=== PATIENT | female | born 1945 | race Caucasian/White ===

== ENCOUNTER 2019-05-07 17:14 | Emergency (ER) | payer MEDICARE ==
[~2019-05-07] VITALS: Ht 152.4 cm; Wt 64.1 kg
[~2019-05-07 17:14] MED LIST: HYDR-4353 PO; METO100T14 PO; NAPR-1166 PO; PANT40TA4 PO
[2019-05-07 17:33] VITALS: BP 144/75
== END 2019-05-07 20:03 | disposition home or self-care (01) ==
LOC: ER 17:14
DX: S00.83XA Contusion of other part of head, initial encounter (principal); R07.81 Pleurodynia; I10 Essential (primary) hypertension; E11.9 Type 2 diabetes mellitus without complications; F17.200 Nicotine dependence, unspecified, uncomplicated; M06.9 Rheumatoid arthritis, unspecified; Z98.890 Other specified postprocedural states; Z88.0 Allergy status to penicillin; Z79.899 Other long term (current) drug therapy; W18.39XA Other fall on same level, initial encounter; Y93.89 Activity, other specified; Y92.89 Other specified places as the place of occurrence of the external cause; Y99.8 Other external cause status
CPT/HCPCS: 70450; 71046; 72125; 99284

== ENCOUNTER 2020-04-16 16:56 | Emergency (ER) | payer MEDICARE ==
[~2020-04-16] VITALS: Ht 152.4 cm; Wt 67.6 kg
[~2020-04-16 16:56] MED LIST changes: -PANT40TA4 PO; +PANT40TA54 PO
[2020-04-16] MEDS ORDERED: cloNIDine 0.1 mg tablet PO ONE (18:05)
[2020-04-16 18:33] LABS: CLARITY,URINE CLEAR (Clear); COLOR,URINE YELLOW (Yellow); GLUCOSE, URINE NEGATIVE (Neg); KETONES,URINE NEGATIVE (Neg); LEUKOCYTE ESTERASE ,URINE TRACE (Neg); NITRITES, URINE NEGATIVE (Neg); OCCULT BLOOD,URINE NEGATIVE (Neg); PROTEIN,URINE NEGATIVE (Neg); UROBILINOGEN,URINE 0.2 E.U/dL (0.2-1.0)
[2020-04-16 18:39] LABS: UA COLLECTION TYPE CLN CATCH MIDSTREAM
[2020-04-16 18:40] LABS: BACTERIA,URINE 1+ /HPF (Neg); RBC,URINE NONE SEEN /HPF (0-2); SQUAMOUS EPITHELIAL CELL,UR FEW /LPF (FEW); WBC,URINE 0-4 /HPF (0-4)
[2020-04-16 18:44] LABS: BASOPHILS # (AUTO) 0.1 X10'3 (0-0.2); BASOPHILS % (AUTO) 1.1 % (0-1); EOSINOPHILS # (AUTO) 0.3 X10'3 (0-0.9); EOSINOPHILS % (AUTO) 4.1 % (0-6); HEMATOCRIT 37.2 % (35.0-45.0); HEMOGLOBIN 12.5 g/dl (12.0-16.0); LYMPHOCYTES # (AUTO) 3.1 X10'3 (1.1-4.8); LYMPHOCYTES % (AUTO) 43.5 % (21-51); MEAN CORPUSCULAR HEMOGLOBIN 28.3 PG (27.0-31.0); MEAN CORPUSCULAR HGB CONC 33.5 g/dL (33.0-36.5); MEAN CORPUSCULAR VOLUME 84.6 FL (78-98); MEAN PLATELET VOLUME 7.1 FL (7.4-10.4); MONOCYTES # (AUTO) 0.7 X10'3 (0-0.9); MONOCYTES % (AUTO) 10.3 % (2-12); NEUTROPHILS # (AUTO) 2.9 X10'3 (1.8-7.7); PLATELET COUNT 338 X10'3 (140-440); RED CELL DISTRIBUTION WIDTH 14.9 % (11.5-14.5); WHITE BLOOD COUNT 7.1 X10'3 (4.5-11.0)
[2020-04-16 18:54] LABS: MAGNESIUM 1.9 MG/DL (1.5-2.4)
[2020-04-16 19:25] VITALS: BP 169/94
== END 2020-04-16 19:32 | disposition home or self-care (01) ==
LOC: ER 16:57
DX: I10 Essential (primary) hypertension (principal); E11.9 Type 2 diabetes mellitus without complications; Z98.890 Other specified postprocedural states; Z88.0 Allergy status to penicillin; Z79.899 Other long term (current) drug therapy
CPT/HCPCS: 36415; 81001; 83735; 83880; 84484; 85025; 87077; 87088; 87186; 93005; 99284; 99285

== ENCOUNTER 2021-04-24 13:48 | Emergency (ER) | payer MEDICARE ==
[~2021-04-24] VITALS: Ht 152.4 cm; Wt 65.9 kg
[2021-04-24 15:22] VITALS: BP 153/50
[2021-04-24] MEDS ORDERED: BENZ-38 PO (17:11)
[2021-04-24] MEDS ORDERED: AZIT500T PO (17:11)
== END 2021-04-24 17:41 | disposition home or self-care (01) ==
LOC: ER 13:49
DX: J20.9 Acute bronchitis, unspecified (principal); Z20.822 Contact with and (suspected) exposure to COVID-19; I10 Essential (primary) hypertension; E11.9 Type 2 diabetes mellitus without complications; M06.9 Rheumatoid arthritis, unspecified; Z98.82 Breast implant status; Z88.0 Allergy status to penicillin; Z79.1 Long term (current) use of non-steroidal anti-inflammatories (NSAID); Z79.899 Other long term (current) drug therapy
CPT/HCPCS: 71045; 87635; 99284; C9803

== ENCOUNTER 2021-09-11 11:34 | Emergency (ER) | payer MEDICARE ==
[~2021-09-11] VITALS: Ht 152.4 cm; Wt 66.8 kg
[2021-09-11 12:28] LABS: BASOPHILS # (AUTO) 0.1 X10'3 (0-0.2); BASOPHILS % (AUTO) 0.9 % (0-1); EOSINOPHILS # (AUTO) 0.5 X10'3 (0-0.9); EOSINOPHILS % (AUTO) 6.2 % (0-6); HEMATOCRIT 35.2 % (35.0-45.0); HEMOGLOBIN 11.6 g/dl (12.0-16.0); LYMPHOCYTES % (AUTO) 26.5 % (21-51); MEAN CORPUSCULAR HEMOGLOBIN 28.2 PG (27.0-31.0); MEAN CORPUSCULAR HGB CONC 32.9 g/dL (33.0-36.5); MEAN CORPUSCULAR VOLUME 85.7 FL (78-98); MEAN PLATELET VOLUME 7.1 FL (7.4-10.4); MONOCYTES # (AUTO) 0.8 X10'3 (0-0.9); MONOCYTES % (AUTO) 10.1 % (2-12); NEUTROPHILS # (AUTO) 4.2 X10'3 (1.8-7.7); NEUTROPHILS % (AUTO) 56.3 % (42-75); PLATELET COUNT 281 X10'3 (140-440); RED BLOOD COUNT 4.11 X10'6 (4.20-5.60); RED CELL DISTRIBUTION WIDTH 15.2 % (11.5-14.5); WHITE BLOOD COUNT 7.4 X10'3 (4.5-11.0)
[2021-09-11 12:38] LABS: ALANINE AMINOTRANSFERASE 15 U/L (12-78); ALBUMIN 3.5 G/DL (3.4-5.0); ALBUMIN/GLOBULIN RATIO 0.9 (1.1-1.5); ALKALINE PHOSPHATASE 69 IU/L (46-116); ANION GAP 6 (8-16); ASPARTATE AMINO TRANSFERASE 17 U/L (10-37); BILIRUBIN,TOTAL 0.3 MG/DL (0.1-1.0); BLOOD UREA NITROGEN 22 MG/DL (7-18); BUN/CREATININE RATIO 24.7 (6.6-38.0); CALCIUM 8.9 MG/DL (8.5-10.1); CHLORIDE 99 MMOL/L (99-107); CREATININE 0.89 MG/DL (0.40-0.90); GLUCOSE 89 MG/DL (70-104); POTASSIUM 4.6 MMOL/L (3.5-5.1); SODIUM 133 MMOL/L (135-145); TOTAL CARBON DIOXIDE 27.8 MMOL/L (24-32); TOTAL PROTEIN 7.4 G/DL (6.4-8.2); eGFR 62 ML/MIN
--- NOTE | 2021-09-11 15:11 | NUR ---
Pt awaiting md, no needs at this time. alert and oriented x3.
--- NOTE | 2021-09-11 16:45 | NUR ---
Pt waiting for MD, no apparent distress or needs at this time.
[2021-09-11] MEDS ORDERED: azithromycin 250mg tablet PO ONE (17:35)
[2021-09-11] MEDS ORDERED: albuterol 2.5 MG/3 ML nebule NEB ONE (17:35)
[2021-09-11] MEDS ORDERED: predniSONE 20 mg tablet PO ONE (17:35)
[2021-09-11 17:42] VITALS: BP 144/72
--- NOTE | 2021-09-11 17:43 | NUR ---
RT here for breathing tx.
[2021-09-11] MEDS ORDERED: PRED20TA PO (17:50)
[2021-09-11] MEDS ORDERED: AZIT250T PO (17:50)
[2021-09-11] MEDS ORDERED: ALB0.5UD IH (17:50)
[2021-09-11] MEDS ORDERED: [UNRECOGNIZED DRUG - CODE] INH (17:50)
== END 2021-09-11 18:17 | disposition home or self-care (01) ==
LOC: ER 11:35
DX: R91.1 Solitary pulmonary nodule (principal); J44.1 Chronic obstructive pulmonary disease with (acute) exacerbation; R06.02 Shortness of breath; R05.9 Cough, unspecified; I10 Essential (primary) hypertension; E11.9 Type 2 diabetes mellitus without complications; Z98.890 Other specified postprocedural states; Z88.0 Allergy status to penicillin; Z88.8 Allergy status to other drugs, medicaments and biological substances; Z79.2 Long term (current) use of antibiotics; Z79.899 Other long term (current) drug therapy
CPT/HCPCS: 36415; 71045; 80053; 83880; 84484; 85025; 93005; 94640; 99285; J7512; 94760

== ENCOUNTER 2022-01-08 10:46 | Emergency (ER) | payer MEDICARE, MEDICAID ==
[~2022-01-08] VITALS: Ht 152.4 cm; Wt 64.0 kg
[~2022-01-08 10:46] MED LIST changes: +AZIT250T PO; +[UNRECOGNIZED DRUG - CODE] INH
[2022-01-08 11:40] LABS: BASOPHILS # (AUTO) 0.1 X10'3 (0-0.2); BASOPHILS % (AUTO) 0.5 % (0-1); EOSINOPHILS # (AUTO) 0.2 X10'3 (0-0.9); EOSINOPHILS % (AUTO) 1.4 % (0-6); HEMATOCRIT 34.8 % (35.0-45.0); HEMOGLOBIN 11.4 g/dl (12.0-16.0); LYMPHOCYTES # (AUTO) 1.2 X10'3 (1.1-4.8); LYMPHOCYTES % (AUTO) 9.2 % (21-51); MEAN CORPUSCULAR HEMOGLOBIN 27.8 PG (27.0-31.0); MEAN CORPUSCULAR HGB CONC 32.9 g/dL (33.0-36.5); MEAN CORPUSCULAR VOLUME 84.6 FL (78-98); MEAN PLATELET VOLUME 6.6 FL (7.4-10.4); MONOCYTES # (AUTO) 0.9 X10'3 (0-0.9); MONOCYTES % (AUTO) 7.2 % (2-12); NEUTROPHILS # (AUTO) 10.6 X10'3 (1.8-7.7); NEUTROPHILS % (AUTO) 81.7 % (42-75); PLATELET COUNT 384 X10'3 (140-440); RED BLOOD COUNT 4.11 X10'6 (4.20-5.60); RED CELL DISTRIBUTION WIDTH 14.9 % (11.5-14.5)
--- NOTE | 2022-01-08 11:41 | NUR ---
Straight cath done. Rash noted in sarahi area. Pt came in wearing a diaper.
[2022-01-08 11:53] LABS: ALANINE AMINOTRANSFERASE 12 U/L (12-78); ALBUMIN 3.4 G/DL (3.4-5.0); ALBUMIN/GLOBULIN RATIO 0.8 (1.1-1.5); ALKALINE PHOSPHATASE 86 IU/L (46-116); ANION GAP 9 (8-16); ASPARTATE AMINO TRANSFERASE 19 U/L (10-37); BILIRUBIN,TOTAL 0.4 MG/DL (0.1-1.0); BLOOD UREA NITROGEN 16 MG/DL (7-18); BUN/CREATININE RATIO 21.1 (6.6-38.0); CALCIUM 9.3 MG/DL (8.5-10.1); CHLORIDE 95 MMOL/L (99-107); CREATININE 0.76 MG/DL (0.40-0.90); GLUCOSE 88 MG/DL (70-104); POTASSIUM 4.6 MMOL/L (3.5-5.1); SODIUM 129 MMOL/L (135-145); TOTAL CARBON DIOXIDE 25.1 MMOL/L (24-32); TOTAL PROTEIN 7.6 G/DL (6.4-8.2); eGFR 74 ML/MIN
[2022-01-08] MEDS ORDERED: normal saline 1000ML IV soln IVB ONE (12:00)
[2022-01-08 12:05] VITALS: BP 110/63
[2022-01-08 12:18] LABS: CLARITY,URINE CLOUDY (Clear); COLOR,URINE YELLOW (Yellow); GLUCOSE, URINE NEGATIVE (Neg); KETONES,URINE NEGATIVE (Neg); LEUKOCYTE ESTERASE ,URINE SMALL (Neg); NITRITES, URINE POSITIVE (Neg); OCCULT BLOOD,URINE TRACE-INTACT (Neg); PH,URINE 5.5 (4.8-8.0); PROTEIN,URINE NEGATIVE (Neg); UROBILINOGEN,URINE 0.2 E.U/dL (0.2-1.0)
--- NOTE | 2022-01-08 12:21 | NUR ---
Pt unable to sit still for CT. Very restless and c/o pain in R leg and back.
[2022-01-08 12:23] LABS: UA COLLECTION TYPE OTHER
[2022-01-08 12:24] LABS: SQUAMOUS EPITHELIAL CELL,UR FEW /LPF (FEW)
[2022-01-08 12:25] LABS: BACTERIA,URINE 3+ /HPF (Neg)
[2022-01-08 12:26] LABS: RBC,URINE 0-2 /HPF (0-2)
[2022-01-08 12:27] LABS: AMORPHOUS URATES 1+; MUCUS STRANDS FEW /LPF (Neg); TRANSITIONAL EPI CELLS,URINE FEW /HPF
[2022-01-08] MEDS ORDERED: CefTRIAXone 2gm/D5W 50ml BAG 50 ML IV ONE (12:55)
[2022-01-08] MEDS ORDERED: CEPH250T PO (13:01)
[2022-01-08] MEDS ORDERED: cephalexin 500mg capsule PO ONE (13:05)
--- NOTE | 2022-01-08 13:15 | NUR ---
Pt's family member, Leatha, left the department for an appointment and will not be able to return until after 4pm to belt picker pt.
[2022-01-08] MEDS ORDERED: acetaminophen 325mg tablet PO ONE (16:10)
--- NOTE | 2022-01-08 16:25 | NUR ---
Pt and caregiver given and understands d/c instructions. Escorted out via wheelchair to car.
== END 2022-01-08 16:27 | disposition home or self-care (01) ==
LOC: ER 10:46
DX: N39.0 Urinary tract infection, site not specified (principal); Z20.822 Contact with and (suspected) exposure to COVID-19; I10 Essential (primary) hypertension; E11.9 Type 2 diabetes mellitus without complications; Z88.0 Allergy status to penicillin; Z88.8 Allergy status to other drugs, medicaments and biological substances; Z91.09 Other allergy status, other than to drugs and biological substances
CPT/HCPCS: 36415; 71045; 80053; 81001; 83880; 84484; 85025; 87077; 87088; 87186; 87635; 93005; 99285; C9803; J7030; J7040; A4353